=== PATIENT | male | born 1970 | race Caucasian/White ===

== ENCOUNTER 2020-12-20 20:21 | Emergency (ER) | payer OTHER ==
[~2020-12-20] VITALS: Ht 185.4 cm; Wt 136.1 kg
[2020-12-20 20:28] VITALS: Ht 185.4 cm; Wt 136.1 kg
[2020-12-20 22:18] LABS: PLATELET COUNT 221 x10^3mcL (152-348); RED CELL DISTRIBUTION WIDTH 13.3 % (12.1-16.2)
[2020-12-20 22:21] LABS: CALCIUM 8.2 mg/dL (8.5-10.1); CARBON DIOXIDE 28.2 mmol/L (21-32); CHLORIDE SERUM 104 mmol/L (98-107); GFR1 > 60 mL/min; GLUCOSE SERUM 100 mg/dL (74-106); POTASSIUM SERUM 4.1 mmol/L (3.5-5.1); SODIUM SERUM 140 mmol/L (136-145)
[2020-12-20 22:31] LABS: ALBUMIN 3.7 g/dL (3.4-5.0); ALKALINE PHOSPHATASE 132 U/L (46-116); ALT/SGPT 71 U/L (16-63); AST/SGOT 59 U/L (15-37); BILIRUBIN TOTAL 0.4 mg/dL (0.20-1.00); TOTAL PROTEIN, SERUM 7.5 g/dL (6.4-8.2)
[2020-12-21 01:41] VITALS: BP 161/108
== END 2020-12-21 01:41 | disposition home or self-care (01) ==
LOC: EDSEX 20:21 → ED 20:21
PROVIDERS: Emergency Medicine
DX: R06.00 Dyspnea, unspecified (principal); I10 Essential (primary) hypertension; J45.909 Unspecified asthma, uncomplicated; F15.10 Other stimulant abuse, uncomplicated; F17.210 Nicotine dependence, cigarettes, uncomplicated; Z20.828 Contact with and (suspected) exposure to other viral communicable diseases
CPT/HCPCS: 83880; 99406; J3490; U0003